=== PATIENT | female | born 1970 | race American Indian/Alaskan Native ===

== ENCOUNTER 2020-11-25 15:48 | Outpatient (CLI) | payer BC ==
--- NOTE | 2020-11-26 09:52 | Mammography Report ---
DIGITAL SCREENING MAMMOGRAM WITH CAD, 11/25/2020 CLINICAL INFORMATION / INDICATION: Routine screening mammography. SCREENING MAMMO TECHNIQUE: Digital bilateral 2D mammography was obtained in the craniocaudal and mediolateral obliqu e projections. This examination was interpreted with the benefit of Computer-Aided Detection analysis . COMPARISON: 05/16/2013 and 07/10/2013. FINDINGS: Breast Density: The breasts are extremely dense, which lowers the sensitivity of mammography. No dominant mass, suspicious calcifications, or architectural distortion in either breast. Benign-appearing nodularity in the left upper outer quadrant is stable. There is a new left biopsy cl ip superiorly. No other change is seen. IMPRESSION: No mammographic evidence of malignancy. Follow up recommendation: Routine yearly BI-RADS Category 2: Benign. A "normal" or negative report should not discourage follow up or biopsy of a clinically significant f inding. A written summary of these findings will be mailed to the patient. The patient will be entered into a mammography reporting system which will generate a reminder letter for the patient's next appointmen t at the appropriate interval. The [employer] recommends yearly mammograms starting at age 40 and continuing as l shlomo as a woman is in good health. Breast MRI is recommended for women with an approximate 20-25% or greater lifetime risk of breast cancer, including women with a strong family history of breast or ova cielo cancer or who have been treated for Hodgkin's disease. Signer Name: Demetrio Acosta MD Signed: 11/26/2020 9:48 AM Workstation Name: [employer]
== END 2020-11-25 15:49 | disposition home or self-care (01) ==
LOC: SPVWC 15:48
PROVIDERS: ATTEND Obstetrics & Gynecology
DX: Z12.31 Encounter for screening mammogram for malignant neoplasm of breast (principal); N64.89 Other specified disorders of breast
CPT/HCPCS: 77067

== ENCOUNTER 2021-11-28 07:06 | Outpatient (CLI) | payer BC ==
--- NOTE | 2021-11-28 11:20 | Mammography Report ---
DIGITAL SCREENING MAMMOGRAM WITH CAD, 11/28/2021 CLINICAL INFORMATION / INDICATION: Routine screening mammography. TECHNIQUE: Digital bilateral 2D mammography was obtained in the craniocaudal and mediolateral obliqu e projections. This examination was interpreted with the benefit of Computer-Aided Detection analysis . COMPARISON: 11/25/2020, 07/10/2013 FINDINGS: Breast Density: The breasts are extremely dense, which lowers the sensitivity of mammography. No dominant mass, suspicious calcifications, or architectural distortion in either breast. Left breast biopsy clip is noted. Stable nodularity, upper outer quadrant left breast. Overall, no in terval change. IMPRESSION: No mammographic evidence of malignancy. Follow up recommendation: Routine yearly screening mammogram. BI-RADS Category 2: BENIGN. A "normal" or negative report should not discourage follow up or biopsy of a clinically significant f inding. A written summary of these findings will be mailed to the patient. The patient will be entered into a mammography reporting system which will generate a reminder letter for the patient's next appointmen t at the appropriate interval. The [employer] recommends yearly mammograms starting at age 40 and continuing as l shlomo as a woman is in good health. Breast MRI is recommended for women with an approximate 20-25% or greater lifetime risk of breast cancer, including women with a strong family history of breast or ova cielo cancer or who have been treated for Hodgkin's disease. Signer Name: Sonia Márquez MD Signed: 11/28/2021 11:16 AM Workstation Name: Written
== END 2021-11-28 07:07 | disposition home or self-care (01) ==
LOC: MAMMO 07:06
PROVIDERS: ATTEND Obstetrics & Gynecology
DX: Z12.31 Encounter for screening mammogram for malignant neoplasm of breast (principal)
CPT/HCPCS: 77067